=== PATIENT | male | born 1970 | race Asian ===

== ENCOUNTER 2021-03-25 13:28 | Emergency (ER) | payer OTHER ==
[~2021-03-25] VITALS: Ht 157.5 cm; Wt 70.5 kg
[2021-03-25 15:21] VITALS: BP 151/75
[2021-03-25] MEDS ORDERED: LIDOCAINE 5% TRANSDERMAL PATCH TD ONE (16:15)
[2021-03-25] MEDS ORDERED: KETOROLAC TROMETHAMINE 30 MG/ML VIAL IM ONE (16:15)
== END 2021-03-25 16:32 | disposition home or self-care (01) ==
LOC: EMS 13:33
DX: M62.838 Other muscle spasm (principal); E78.00 Pure hypercholesterolemia, unspecified; M54.2 Cervicalgia
CPT/HCPCS: 96372; 99283; J1885